=== PATIENT | female | born 1970 | race Caucasian/White ===

== ENCOUNTER → 2017-02-23 | Outpatient (CLI) | payer BC | LOC: MC.RAD 07:00 | DX: Z12.31 Encounter for screening mammogram for malignant neoplasm of breast (principal); Z80.3 Family history of malignant neoplasm of breast ==

== ENCOUNTER → 2018-04-05 | Outpatient (CLI) | payer BC | LOC: MC.RAD 10:14 | DX: Z12.31 Encounter for screening mammogram for malignant neoplasm of breast (principal) ==

== ENCOUNTER → 2019-07-30 | Outpatient (CLI) | payer BC | LOC: MC.RAD 07:45 | DX: Z12.31 Encounter for screening mammogram for malignant neoplasm of breast (principal) ==

== ENCOUNTER → 2020-10-26 | Outpatient (CLI) | payer BC | LOC: MC.RAD 15:00 | DX: Z12.31 Encounter for screening mammogram for malignant neoplasm of breast (principal) ==

== ENCOUNTER → 2022-11-03 | Outpatient (CLI) | payer BC | LOC: COL.LAB 08:46 | DX: Z01.89 Encounter for other specified special examinations (principal) ==

== ENCOUNTER → 2023-07-28 | Outpatient (CLI) | payer BC | LOC: MC.RAD 08:52 | DX: R92.8 Other abnormal and inconclusive findings on diagnostic imaging of breast (principal) ==